=== PATIENT | female | born 1970 | race American Indian/Alaskan Native ===

== ENCOUNTER 2019-10-04 14:07 | Emergency (ER) | payer SELFPAY ==
[2019-10-04 15:33] LABS: Basophils # (Auto) 0.1 K/mm3 (0.0-0.1); Eosinophils # (Auto) 0.4 K/mm3 (0.0-0.4); Eosinophils % (Auto) 4.5 % (0.0-4.3); Hematocrit 44.5 % (30.3-42.9); Hemoglobin 14.6 gm/dl (10.1-14.3); Lymphocytes # (Auto) 2.9 K/mm3 (1.2-5.4); Lymphocytes % (Auto) 32.8 % (13.4-35.0); Mean Corpuscular HGB Conc 33 % (30-34); Mean Corpuscular Volume 90 fl (79-97); Monocytes # (Auto) 0.7 K/mm3 (0.0-0.8); Monocytes % (Auto) 8.1 % (0.0-7.3); Platelet Count 341 K/mm3 (140-440); Red Blood Count 4.95 M/mm3 (3.65-5.03); Red Cell Distribution Width 14.2 % (13.2-15.2)
--- NOTE | 2019-10-04 15:33 | Emergency Department Report ---
ED Shortness of Breath HPI - General Chief Complaint: Dyspnea/Respdistress Stated Complaint: SOB/LOSS OF APPETITE Time Seen by Provider: 10/04/19 14:28 Source: patient Mode of arrival: Ambulatory Limitations: No Limitations - History of Present Illness Initial Comments: This is a 49-year-old female nontoxic presents to the ED with c/o of bpdy aches, decreased taste and smell, SOB and cough. Patient denies any chest pains. PAtient stated has been exposed to COVID due to her boyfriend. Patient denies any hemoptysis, fever, chills, nausea, vomiting, headache, stiff neck, numbness, tingling, abdominal pain. Patient denies any recent travels or long car rides. Patient denies any recent surgeries. Patient stated allergies to latex, morphine and penicillin. MD Complaint: shortness of breath, cough -: days(s) Severity: moderate Pain Scale: 0 Improves With: nothing Worsens With: nothing Associated Symptoms: cough, sputum production Treatments Prior to Arrival: none - Related Data Home Oxygen Therapy: No Previous Rx's Medication Instructions Recorded Last Taken Type Benzonatate [Tessalon Perles] 100 mg PO Q12H PRN #20 capsule 10/04/19 Unknown Rx Allergies Allergy/AdvReac Type Severity Reaction Status Date / Time latex Allergy Swelling Verified 10/04/19 14:16 morphine Allergy Swelling Verified 10/04/19 14:16 Penicillins Allergy Swelling Verified 10/04/19 14:16 ED Review of Systems ROS: Stated complaint: SOB/LOSS OF APPETITE Other details as noted in HPI Constitutional: denies: chills, fever Eyes: denies: eye pain, eye discharge, vision change ENT: congestion. denies: ear pain, throat pain Respiratory: cough, shortness of breath. denies: wheezing Cardiovascular: denies: chest pain, palpitations Endocrine: no symptoms reported Gastrointestinal: denies: abdominal pain, nausea, diarrhea Genitourinary: denies: urgency, dysuria, discharge Musculoskeletal: denies: back pain, joint swelling, arthralgia Skin: denies: rash, lesions Neurological: denies: headache, weakness, paresthesias Psychiatric: denies: anxiety, depression Hematological/Lymphatic: denies: easy bleeding, easy bruising ED Past Medical Hx - Past Medical History Additional medical history: CONGENTIAL HEART DISEASE - Surgical History Additional Surgical History: C SECTION X3 - Medications Home Medications: Home Medications Medication Instructions Recorded Confirmed Last Taken Type Benzonatate [Tessalon Perles] 100 mg PO Q12H PRN #20 capsule 10/04/19 Unknown Rx ED Physical Exam - General Limitations: No Limitations General appearance: alert, in no apparent distress - Head Head exam: Present: atraumatic, normocephalic - Eye Eye exam: Present: normal appearance - Neck Neck exam: Present: normal inspection, full ROM. Absent: tenderness, meningismus, lymphadenopathy - Respiratory Respiratory exam: Present: respiratory distress. Absent: wheezes, rales, rhonchi, stridor, chest wall tenderness, accessory muscle use, decreased breath sounds, prolonged expiratory - Cardiovascular Cardiovascular Exam: Present: regular rate, normal rhythm, normal heart sounds. Absent: bradycardia, tachycardia, irregular rhythm, systolic murmur, diastolic murmur, rubs, gallop - GI/Abdominal GI/Abdominal exam: Present: soft, normal bowel sounds. Absent: distended, tenderness, guarding, rebound, rigid, diminished bowel sounds - Extremities Exam Extremities exam: Present: normal inspection, full ROM - Back Exam Back exam: Present: normal inspection, full ROM. Absent: tenderness, CVA tenderness (R), CVA tenderness (L), muscle spasm, paraspinal tenderness, vertebral tenderness, rash noted - Neurological Exam Neurological exam: Present: alert, oriented X3, normal gait - Psychiatric Psychiatric exam: Present: normal affect, normal mood - Skin Skin exam: Present: warm, dry, intact, normal color. Absent: rash ED Course Vital Signs 10/04/19 10/04/19 10/04/19 14:19 15:13 16:34 Temperature 98.2 F 98.3 F Pulse Rate 74 51 L Respiratory 32 H 18 Rate Blood Pressure 115/77 124/61 [Right] O2 Sat by Pulse 100 100 99 Oximetry - Reevaluation(s) Reevaluation #1: 10/04/19 16:43 Patient is speaking in full sentences with no signs of distress noted. ED Medical Decision Making - Lab Data Result diagrams: 10/04/19 14:54 10/04/19 15:07 Lab Results 10/04/19 10/04/19 10/04/19 Range/Units 14:54 14:54 14:54 WBC 8.7 (4.5-11.0) K/mm3 RBC 4.95 (3.65-5.03) M/mm3 Hgb 14.6 H (10.1-14.3) gm/dl Hct 44.5 H (30.3-42.9) % MCV 90 (79-97) fl MCH 29 (28-32) pg MCHC 33 (30-34) % RDW 14.2 (13.2-15.2) % Plt Count 341 (140-440) K/mm3 Lymph % (Auto) 32.8 (13.4-35.0) % [place] % (Auto) 8.1 H (0.0-7.3) % Eos % (Auto) 4.5 H (0.0-4.3) % Baso % (Auto) 1.0 (0.0-1.8) % Lymph # 2.9 (1.2-5.4) K/mm3 [place] # 0.7 (0.0-0.8) K/mm3 Eos # 0.4 (0.0-0.4) K/mm3 Baso # 0.1 (0.0-0.1) K/mm3 Seg Neutrophils % 53.6 (40.0-70.0) % Seg Neutrophils # 4.7 (1.8-7.7) K/mm3 PT 12.9 (12.2-14.9) Sec. INR 0.99 (0.87-1.13) APTT 28.6 (24.2-36.6) Sec. D-Dimer (0-234) ng/mlDDU Sodium (137-145) mmol/L Potassium (3.6-5.0) mmol/L Chloride (98-107) mmol/L Carbon Dioxide (22-30) mmol/L Anion Gap mmol/L BUN (7-17) mg/dL Creatinine (0.7-1.2) mg/dL Estimated GFR ml/min BUN/Creatinine Ratio % Glucose (65-100) mg/dL Calcium (8.4-10.2) mg/dL Ferritin (13.0-400.0) ng/mL Total Bilirubin (0.1-1.2) mg/dL AST (5-40) units/L ALT (7-56) units/L Alkaline Phosphatase (35-129) units/L Lactate Dehydrogenase (91-180) units/L Troponin T (0.00-0.029) ng/mL C-Reactive Protein (0.00-1.30) mg/dL NT-Pro-B Natriuret Pep (0-450) pg/mL Total Protein (6.3-8.2) g/dL Albumin (3.9-5) g/dL Albumin/Globulin Ratio % HCG, Qual Negative (Negative) 10/04/19 10/04/19 10/04/19 Range/Units 14:54 14:54 15:07 WBC (4.5-11.0) K/mm3 RBC (3.65-5.03) M/mm3 Hgb (10.1-14.3) gm/dl Hct (30.3-42.9) % MCV (79-97) fl MCH (28-32) pg MCHC (30-34) % RDW (13.2-15.2) % Plt Count (140-440) K/mm3 Lymph % (Auto) (13.4-35.0) % [place] % (Auto) (0.0-7.3) % Eos % (Auto) (0.0-4.3) % Baso % (Auto) (0.0-1.8) % Lymph # (1.2-5.4) K/mm3 [place] # (0.0-0.8) K/mm3 Eos # (0.0-0.4) K/mm3 Baso # (0.0-0.1) K/mm3 Seg Neutrophils % (40.0-70.0) % Seg Neutrophils # (1.8-7.7) K/mm3 PT (12.2-14.9) Sec. INR (0.87-1.13) APTT (24.2-36.6) Sec. D-Dimer 171.59 (0-234) ng/mlDDU Sodium 137 (137-145) mmol/L Potassium 3.6 (3.6-5.0) mmol/L Chloride 104.2 (98-107) mmol/L Carbon Dioxide 19 L (22-30) mmol/L Anion Gap 17 mmol/L BUN 9 (7-17) mg/dL Creatinine 0.8 (0.7-1.2) mg/dL Estimated GFR > 60 ml/min BUN/Creatinine Ratio 11 % Glucose 122 H 113 H (65-100) mg/dL Calcium 9.2 (8.4-10.2) mg/dL Ferritin (13.0-400.0) ng/mL Total Bilirubin 0.20 (0.1-1.2) mg/dL AST 17 (5-40) units/L ALT 20 (7-56) units/L Alkaline Phosphatase 67 (35-129) units/L Lactate Dehydrogenase 147 (91-180) units/L Troponin T < 0.010 (0.00-0.029) ng/mL C-Reactive Protein 0.10 (0.00-1.30) mg/dL NT-Pro-B Natriuret Pep 90.31 (0-450) pg/mL Total Protein 6.7 (6.3-8.2) g/dL Albumin 3.9 (3.9-5) g/dL Albumin/Globulin Ratio 1.4 % HCG, Qual (Negative) 10/04/19 Range/Units 15:07 WBC (4.5-11.0) K/mm3 RBC (3.65-5.03) M/mm3 Hgb (10.1-14.3) gm/dl Hct (30.3-42.9) % MCV (79-97) fl MCH (28-32) pg MCHC (30-34) % RDW (13.2-15.2) % Plt Count (140-440) K/mm3 Lymph % (Auto) (13.4-35.0) % [place] % (Auto) (0.0-7.3) % Eos % (Auto) (0.0-4.3) % Baso % (Auto) (0.0-1.8) % Lymph # (1.2-5.4) K/mm3 [place] # (0.0-0.8) K/mm3 Eos # (0.0-0.4) K/mm3 Baso # (0.0-0.1) K/mm3 Seg Neutrophils % (40.0-70.0) % Seg Neutrophils # (1.8-7.7) K/mm3 PT (12.2-14.9) Sec. INR (0.87-1.13) APTT (24.2-36.6) Sec. D-Dimer (0-234) ng/mlDDU Sodium (137-145) mmol/L Potassium (3.6-5.0) mmol/L Chloride (98-107) mmol/L Carbon Dioxide (22-30) mmol/L Anion Gap mmol/L BUN (7-17) mg/dL Creatinine (0.7-1.2) mg/dL Estimated GFR ml/min BUN/Creatinine Ratio % Glucose (65-100) mg/dL Calcium (8.4-10.2) mg/dL Ferritin 101.2 (13.0-400.0) ng/mL Total Bilirubin (0.1-1.2) mg/dL AST (5-40) units/L ALT (7-56) units/L Alkaline Phosphatase (35-129) units/L Lactate Dehydrogenase (91-180) units/L Troponin T (0.00-0.029) ng/mL C-Reactive Protein (0.00-1.30) mg/dL NT-Pro-B Natriuret Pep (0-450) pg/mL Total Protein (6.3-8.2) g/dL Albumin (3.9-5) g/dL Albumin/Globulin Ratio % HCG, Qual (Negative) - EKG Data 10/04/19 15:39 Normal sinus rhythm at [address] or T wave abnormalities. Reviewed and signed by Dr. Pedersen. - Radiology Data Referring Physician: GRECIA CHAVEZ Patient Name: RHETT KWON Date of : 1970 Sex: Female Report Date: 2019-10-04 Report Status: Finalized [place] [id number] XRay Report Signed Patient: RHETT KWON MR#: [id number] : 1970 Acct:[id number] Age/Sex: 49 / F ADM Date: 10/04/19 Loc: ED Attending Dr: Ordering Physician: GRECIA CHAVEZ NP Date of Service: 10/04/19 Procedure(s): XR chest 1V ap Accession Number(s): [id number] cc: GRECIA CHAVEZ NP Fluoro Time In Minutes: CHEST 1 VIEW INDICATION: Chest Pain. COMPARISON: None. FINDINGS: Support devices: None. Heart: Normal. Lungs/Pleura: There is mild peribronchial cuffing. No consolidation or effusion. No pneumothorax. IMPRESSION: 1. Peribronchial cuffing within both lungs suggestive of lower airways disease. Signer Name: Pineda Pinon MD Signed: 10/04/2019 5:06 PM Workstation Name: [id number] Transcribed By: KASEY Dictated By: Pineda Pinon MD Electron ically Authenticated By: Pineda Pinon MD Signed Date/Time: 10/04/191705 DD/ 05 TD/TT: Referring Physician: GRECIA CHAVEZ Patient Name: RHETT KWON Date of : 1970 Sex: Female Report Date: 2019-10-04 Report Status: Finalized [facility] [address] [place] [address] Cat Scan Report Signed Patient: RHETT KWON MR#: [id number] : 1970 Acct:[id number] Age/Sex: 49 / F ADM Date: 10/04/19 Loc: ED Attending Dr: Ordering Physician: GRECIA CHAVEZ NP Date of Service: 10/04/19 Procedure(s): CT chest wo con Accession Number(s): [id number] cc: GRECIA CHAVEZ NP CT chest without contrast INDICATION : SOB. TECHNIQUE: Axial imaging performed through the chest without the use of intravenous contrast. All CT scans at this location are performed using CT dose reduction for ALARA by means of automated e xposure control. COMPARISON: Chest x-ray from today FINDINGS: There is mild emphysema with a couple scattered 2-3 mm pulmonary nodules (for example there is a right upper lobe nodule adjacent to the major fissure on image #63 of series 2). The lungs are otherwise clear. Heart size is normal. A few shoddy mediastinal lymph nodes are present which could be reactive. Limited imaging of the upper abdomen shows nothing acute. No acute osseous abnormality identified. IMPRESSION: 1. No acute abnormality. 2. Incidental findings as above including a couple to have a 3 mm pulmonary nodules. Please see below recommendations. INCIDENTAL PULMONARY NODULE RECOMMENDATION RECOMMENDATION: Solid Nodule size <6 mm -- Single or Multiple - Low Risk Patient: No routine follow-up - High Risk Patient: Optional CT at 12 months Note These recommendations do not apply to lung cancer screening, patients with immunosuppression, or patients with known primary cancer. Note Newly detected indeterminate nodule in persons 35 years of age or older. Persons under the age of 35 should not receive follow-up unless there is a known primary cancer. Note A Perifissural Nodule is a fissure- attached/subpleural, homogeneous, solid nodule that had smooth margins and an oval, lentiform, or triangular shape. They represent about 20% of nodules detected in lung cancer screening, are invariably benign, and do not require follow-up. Nodules 10 mm or larger (or those with suspicious features) will continue to be managed based on the size criteria. Low Risk Patient -- minimal or absent history of smoking and of other known risk factors. High Risk Patient -- history of smoking or of other known risk factors. Nodule dimensions are average of long and short axes, rounded to the nearest millimeter. Based on 2017 Fleischner Society Guidelines found in Radiology 2017 284:228-243. https://doi.org/10.1148/radiol.9879055824 [facility] ps://www.ncbi.nlm.nih.gov/pmc/articles/END6121049/ Signer Name: Hernesto Dykes MD Signed: 10/04/2019 6:24 PM Workstation Name: [id number] Transcribed By: KIKO Dictated By: Hernesto Dykes MD Electronically Authenticated By: Hernesto Dykes MD Signed Date/Time: 10/04/191823 DD/ 21 TD/TT: - Medical Decision Making This is a 49-year-old female that presents with suspected COVID. Patient is stable and was examined by me. PATSY and HEART score 0 pints. Wells criteria for DVT/SVT/PE 0 points. Negative d-dimmer. EKG normal sinus rhythm with no significant changes in ST. Chest xray and CT results dictated by the radiologist. PAtient is notified of the Xray and cT results report with no questions noted. WAs instructed to follow-up with pulmonary doctor for abnormal CT results in 3-5 days. Labs within normal limits. Negative troponin. Patient high flow oxygen in the ER which he stated the symptoms has improved and subsided shortness of breath. Patient was ambulatory with pulse ox present and sats has not dropped less than 98%. Patient denies any shortness of breath at the time of discharge. Patient was instructed to self quarantine self and was given referrals where she could get a COVID swab testing. Patient was instruct ed to Follow-up with a primary care doctor in 3-5 days or if symptoms worsen and continue return to emergency room as soon as possible. At time of discharge, the patient does not seem toxic or ill in appearance. No acute signs of distress noted. Patient agrees to discharge treatment plan of care. No further questions noted by the patient. - Differential Diagnosis PE, COVID, PNA, anxiety, CHF Critical care attestation.: If time is entered above; I have spent that time in minutes in the direct care of this critically ill patient, excluding procedure time. ED Disposition Clinical Impression: Suspected COVID-19 virus infection Disposition: DC- TO HOME OR SELFCARE Is pt being admited?: No Does the pt Need Aspirin: No Condition: Stable Instructions: COVID-19 Additional Instructions: Follow-up with a primary care doctor in 3-5 days or if symptoms worsen and continue return to emergency room as soon as possible. As educated and instructed to you must self quarantine yourself and people that you have been in close contact with similar symptoms for the next 14 days. Please see your nearest health department, [facility] pharmacy, or primary care doctor that you are referred to for COVID testing. Prescriptions: Benzonatate [Tessalon Perles] 100 mg PO Q12H PRN #20 capsule PRN Reason: Cough Referrals: REBECCA QUINONEZ MD [Primary Care Provider] - 3-5 Days CHRISTIANO MURPHY MD [Staff Physician] - 3-5 Days [facility] [Provider Group] - 3-5 Days Forms: Work/School Release Form(ED)
[2019-10-04 15:38] LABS: INR 0.99 (0.87-1.13)
[2019-10-04 15:39] LABS: Partial Thromboplastin Time 28.6 Sec. (24.2-36.6)
[2019-10-04 15:53] LABS: Alanine Aminotransferase 20 units/L (7-56); Albumin 3.9 g/dL (3.9-5); BUN/Creatinine Ratio 11; Blood Urea Nitrogen 9 mg/dL (7-17); Calcium 9.2 mg/dL (8.4-10.2); Hemolysis Index 18
[2019-10-04 15:58] LABS: C-Reactive Protein 0.1 mg/dL (0.00-1.30)
[2019-10-04 16:35] VITALS: BP 124/61
--- NOTE | 2019-10-04 17:11 | XRay Report ---
CHEST 1 VIEW INDICATION: Chest Pain. COMPARISON: None. FINDINGS: Support devices: None. Heart: Normal. Lungs/Pleura: There is mild peribronchial cuffing. No consolidation or effusion. No pneumothorax. IMPRESSION: 1. Peribronchial cuffing within both lungs suggestive of lower airways disease. Signer Name: Pineda Pinon MD Signed: 10/04/2019 5:06 PM Workstation Name: [id number]
[2019-10-04 17:48] LABS: Bilirubin,Urine NEG (Negative); Blood,Urine NEG (Negative); Color,Urine Yellow (Yellow); Mucus,Urine FEW /HPF; Protein,Urine <15 mg/dL mg/dL (Negative); Urobilinogen,Urine < 2.0 mg/dL (<2.0); WBC,Urine < 1.0 /HPF (0.0-6.0)
--- NOTE | 2019-10-04 18:28 | Cat Scan Report ---
CT chest without contrast INDICATION : SOB. TECHNIQUE: Axial imaging performed through the chest without the use of intravenous contrast. All C T scans at this location are performed using CT dose reduction for ALARA by means of automated exposu re control. COMPARISON: Chest x-ray from today FINDINGS: There is mild emphysema with a couple scattered 2-3 mm pulmonary nodules (for example ther e is a right upper lobe nodule adjacent to the major fissure on image #63 of series 2). The lungs are otherwise clear. Heart size is normal. A few shoddy mediastinal lymph nodes are present which could be reactive. Limited imaging of the upper abdomen shows nothing acute. No acute osseous abnormality identified. IMPRESSION: 1. No acute abnormality. 2. Incidental findings as above including a couple to have a 3 mm pulmonary nodules. Please see below recommendations. INCIDENTAL PULMONARY NODULE RECOMMENDATION RECOMMENDATION: Solid Nodule size <6 mm -- Single or Multiple - Low Risk Patient: No routine follow-up - High Risk Patient: Optional CT at 12 months Note These recommendations do not apply to lung cancer screening, patients with immunosuppression, o r patients with known primary cancer. Note Newly detected indeterminate nodule in persons 35 years of age or older. Persons under the age of 35 should not receive follow-up unless there is a known primary cancer. Note A Perifissural Nodule is a fissure-attached/subpleural, homogeneous, solid nodule that had smoo th margins and an oval, lentiform, or triangular shape. They represent about 20% of nodules detected in lung cancer screening, are invariably benign, and do not require follow-up. Nodules 10 mm or large r (or those with suspicious features) will continue to be managed based on the size criteria. Low Risk Patient -- minimal or absent history of smoking and of other known risk factors. High Risk Patient -- history of smoking or of other known risk factors. Nodule dimensions are average of long and short axes, rounded to the nearest millimeter. Based on 2017 Fleischner Society Guidelines found in Radiology 2017 284:228-243. https://doi.org/10.1148/radiol.1811975718 https://www.ncbi.nlm.nih.gov/pmc/articles/TNF6020468/ Signer Name: Hernesto Dykes MD Signed: 10/04/2019 6:24 PM Workstation Name: [id number]
== END 2019-10-04 18:40 | disposition home or self-care (01) ==
LOC: ED 14:07
DX: M79.18 Myalgia, other site (principal); Z20.828 Contact with and (suspected) exposure to other viral communicable diseases; R06.02 Shortness of breath; R05 Cough
CPT/HCPCS: 36415; 71045; 71250; 80053; 81001; 82728; 82947; 83615; 83880; 84145; 84484; 84703; 85025; 85379; 85610; 85730; 86140; 93005; 94760